=== PATIENT | male | born 1985 | race Caucasian/White ===

== ENCOUNTER 2025-08-14 08:51 | Inpatient (IN) | payer OTHER ==
[~2025-08-14] VITALS: Ht 175.3 cm; Wt 90.0 kg
[2025-08-14 10:08] LABS: PLATELET COUNT (AUTO) 300 K/uL (150-450); RED BLOOD CELL COUNT(AUTO) 4.86 MIL/uL (4.50-5.90); RED CELL DISTRIBUTION WIDTH 16.4 % (11.5-14.5); WHITE BLOOD COUNT (AUTO) 11.0 K/uL (4.5-11.0)
[2025-08-14 10:15] LABS: CALCIUM, TOTAL 8.8 mg/dL (8.8-10.5); CREATININE 1.07 mg/dL (0.60-1.30); GLOMERULAR FILTR. RATE CALC > 60 mL/min (>60); GLUCOSE,RANDOM 106 mg/dL (70-110); SODIUM SERUM 137 mmol/L (136-145); UREA NITROGEN, BLOOD 10 mg/dL (7-18)
[2025-08-14] MEDS ORDERED: ZOLPIDEM TARTRATE 5 MG TABLET PO PRN (12:15)
[2025-08-14] MEDS ORDERED: MAGNESIUM HYDROXIDE SUSPENSION 30 ML UDCUP PO PRN (12:15)
[2025-08-14] MEDS ORDERED: ACETAMINOPHEN 325 MG TABLET PO PRN (12:15)
[2025-08-14] MEDS ORDERED: BISACODYL 10 MG RECTAL RECTAL SUPPOSITORY PR PRN (12:15)
[2025-08-14] MEDS: PEG 3350/NA SULF,BICARB,CL/KCL 4000 ML SOLUTION PO ONE (12:27)
[2025-08-14] MEDS: HEPARIN SODIUM,PORCINE 5,000 UNITS/ML VIAL SQ SCH (16:16)
[2025-08-14] MEDS: ONDANSETRON HCL 4 MG/2 ML VIAL IVP PRN (16:17)
[2025-08-14 20:01] VITALS: BP 116/83; PULSE 77; RESP 20; TEMP 97.9; O2SAT 96
[2025-08-14] MEDS: DOCUSATE SODIUM 100 MG CAPSULE PO SCH (20:42)
[2025-08-15 04:24] VITALS: BP 109/77; PULSE 68; RESP 20; TEMP 97.9; O2SAT 95
[2025-08-15 08:00] VITALS: BP 119/83; PULSE 78; RESP 19; TEMP 97.5; O2SAT 98
[2025-08-15] MEDS: PANTOPRAZOLE SODIUM 40 MG DR TABLET PO SCH (08:40)
== END 2025-08-15 17:44 | DRG 395 ==
LOC: EMS 08:51 → EDH 12:14 → 6N 14:02
PROVIDERS: ADMIT Internal Medicine; ATTEND Internal Medicine
DX: T18.5XXA Foreign body in anus and rectum, initial encounter (principal); K59.00 Constipation, unspecified; W44.8XXA Other foreign body entering into or through a natural orifice, initial encounter; Y93.89 Activity, other specified; Y92.89 Other specified places as the place of occurrence of the external cause; Y99.8 Other external cause status; Z87.891 Personal history of nicotine dependence
CPT/HCPCS: 71045; 74176; 80048; 85025; 99285; G0480; J1644; J2405; 36415-L1; 36415-TC

== ENCOUNTER 2025-08-16 10:12 | Inpatient (IN) | payer OTHER ==
[~2025-08-16] VITALS: Ht 175.3 cm; Wt 90.4 kg
[2025-08-16] MEDS: SODIUM CHLORIDE 0.9% 1,000 ML IV ONE (13:06)
[2025-08-16 13:09] LABS: PLATELET COUNT (AUTO) 264 K/uL (150-450); RED BLOOD CELL COUNT(AUTO) 4.80 MIL/uL (4.50-5.90); RED CELL DISTRIBUTION WIDTH 16.5 % (11.5-14.5); WHITE BLOOD COUNT (AUTO) 7.1 K/uL (4.5-11.0)
[2025-08-16 13:20] LABS: CALCIUM, TOTAL 8.8 mg/dL (8.8-10.5); CREATININE 0.89 mg/dL (0.60-1.30); GLOMERULAR FILTR. RATE CALC > 60 mL/min (>60); GLUCOSE,RANDOM 87 mg/dL (70-110); SODIUM SERUM 137 mmol/L (136-145); UREA NITROGEN, BLOOD 7 mg/dL (7-18)
[2025-08-16] MEDS ORDERED: METOCLOPRAMIDE HCL 5 MG/ML 2 ML VIAL IVP PRN (14:00)
[2025-08-16] MEDS ORDERED: DICYCLOMINE HCL 10 MG CAPSULE PO PRN (14:00)
[2025-08-16] MEDS ORDERED: LOPERAMIDE HCL 2 MG CAPSULE PO PRN (14:00)
[2025-08-16] MEDS ORDERED: ACETAMINOPHEN 325 MG TABLET PO PRN (14:00)
[2025-08-16] MEDS: LORazepam 2 MG/ML VIAL IVP PRN (15:22)
[2025-08-16 22:55] VITALS: BP 109/69; PULSE 68; RESP 18; TEMP 98.1; O2SAT 96
[2025-08-16] MEDS: TEMAZEPAM 15 MG CAPSULE PO SCH (22:57)
[2025-08-17 04:00] VITALS: BP 110/59; PULSE 72; RESP 18; TEMP 98.3; O2SAT 96
[2025-08-17 05:44] LABS: PLATELET COUNT (AUTO) 254 K/uL (150-450); RED BLOOD CELL COUNT(AUTO) 4.65 MIL/uL (4.50-5.90); RED CELL DISTRIBUTION WIDTH 16.1 % (11.5-14.5); WHITE BLOOD COUNT (AUTO) 7.8 K/uL (4.5-11.0)
[2025-08-17 05:56] LABS: CALCIUM, TOTAL 8.4 mg/dL (8.8-10.5); CREATININE 0.87 mg/dL (0.60-1.30); GLOMERULAR FILTR. RATE CALC > 60 mL/min (>60); GLUCOSE,RANDOM 102 mg/dL (70-110); SODIUM SERUM 137 mmol/L (136-145); UREA NITROGEN, BLOOD 6 mg/dL (7-18)
[2025-08-17 08:49] VITALS: BP 114/75; PULSE 66; RESP 18; TEMP 98.2; O2SAT 95
[2025-08-17 15:30] VITALS: BP 108/66; PULSE 79; RESP 18; TEMP 97.9; O2SAT 97
[2025-08-17 16:53] VITALS: BP 108/66; PULSE 79; RESP 18; TEMP 97.9; O2SAT 97
[2025-08-17 20:02] VITALS: BP 108/70; PULSE 77; RESP 18; TEMP 98.1; O2SAT 96
[2025-08-18 04:28] VITALS: BP 120/74; PULSE 60; RESP 18; TEMP 97.8; O2SAT 99
[2025-08-18 08:23] VITALS: BP 118/77; PULSE 64; RESP 18; TEMP 97.5; O2SAT 95
[2025-08-18] MEDS ORDERED: MELA5TAB40 PO (14:22)
[2025-08-18] MEDS ORDERED: MELA3TAB89 PO (14:23)
[2025-08-18] MEDS ORDERED: HYDR25TA83 PO (14:26)
[2025-08-18 20:19] VITALS: BP 107/73; PULSE 82; RESP 18; TEMP 98.4; O2SAT 95
[2025-08-19 05:10] VITALS: BP 110/69; PULSE 79; RESP 18; TEMP 97.9; O2SAT 96
== END 2025-08-19 07:50 | DRG 92 ==
LOC: EMS 10:13 → EDH 13:50 → 6S 22:33
PROVIDERS: ADMIT Internal Medicine; ATTEND Internal Medicine
DX: R25.1 Tremor, unspecified (principal); F11.23 Opioid dependence with withdrawal; F15.23 Other stimulant dependence with withdrawal; R19.7 Diarrhea, unspecified; Z87.891 Personal history of nicotine dependence
CPT/HCPCS: 80048; 85025; 99285; J2060